=== PATIENT | female | born 1950 | race Two or more races ===

== ENCOUNTER → 2020-05-29 | Outpatient (CLI) | payer OTHER, MEDICAID ==
[~2020-05-29] MED LIST: ALBU2TAB4 PO; ASPI-543 PO; ATOR40TA52 PO; FAMO-12 PO; FURO40TA4 PO; LEVO50TA7 PO; METO-169 PO; MONT10TA34 PO; MONT4CHW9 PO
--- NOTE | 2020-05-29 12:30 | NUR ---
PT ARRIVED TO THE CHF CLINIC WITH MD ORDERS FOR WOUND CARE/MARYCRUZ BOOTS TO THE LOWER EXTREMITIES. A/OX4, WHEELCHAIR AND ASSISTED BY FAMILY MEMBER. PT HAS 4+ PITTING EDEMA TO THE LOWER EXTREMITIES. WEEPING WITH MODERATE AMOUNT OF SERIOUS DRAINAGE WITH 1 OPEN BLISTER TO THE R LEG. Addendum: 05/29/20 at 1250 by YANN ANDRE RN RN MT PT IS SLOVAK SPEAKING ONLY CARE INTERPRETED BY MIGNON FROM FRONT OFFICE Addendum: 05/29/20 at 1253 by YANN ANDRE RN RN MT PT ON HOME O2 2L N/C
--- NOTE | 2020-05-29 12:48 | NUR ---
WOUND CARE DONE BY SERVANDO TOMAS. OPI FOAM AG PLACED ON CLEANSED OPEN WOUND WITH 4X4 CRIS PLACED ON TOP. MARYCRUZ BOOTS PLACED OVER CRIS. PT AND FAMILY GIVEN INSTRUCTION ABOUT WOUND CARE IN POLISH BY MIGNON. PT VERBALIZED UNDERSTANDING.
[2020-05-29 13:05] VITALS: BP 139/65
--- NOTE | 2020-05-29 13:05 | NUR ---
Discharge Instructions See e-MAR for any mediations given with this visit. Patient education given on disease process. Patient verbalized understanding. Previous labs reviewed. Patient discharged in stable condition with after care instructions and follow up appointment ON MONDAY NOTE WOUND CARE/MARYCRUZ BOOTS DONE BY SERVANDO TOMAS
== END | disposition home or self-care (01) ==
LOC: Rad HDHVI 11:09
PROVIDERS: ATTEND Internal Medicine
DX: R00.0 Tachycardia, unspecified (principal); I50.9 Heart failure, unspecified; J44.9 Chronic obstructive pulmonary disease, unspecified; Z95.2 Presence of prosthetic heart valve
CPT/HCPCS: 93306; G0463

== ENCOUNTER 2020-06-02 14:54 | Inpatient (IN) | payer OTHER, MEDICAID ==
[~2020-06-02] VITALS: Ht 152.4 cm; Wt 120.9 kg
[2020-06-02] MEDS ORDERED: cefTRIAXone 1GM/50ML D5W 50 ML IV ONE (15:45)
[2020-06-02] MEDS ORDERED: FUROSEMIDE 40 MG/4 ML VIAL IV ONE (15:45)
[2020-06-02] MEDS ORDERED: ENOXAPARIN SOD 30 MG/0.3 ML SYRINGE SC ONE (18:15)
[2020-06-02] MEDS ORDERED: MORPHINE SULF INJ 2 MG/ML SYRINGE 1ML IV PRN ×2 (18:15)
[2020-06-02] MEDS ORDERED: LORazepam 0.5 MG TAB PO PRN (18:15)
[2020-06-02] MEDS ORDERED: NITROGLYCERIN 0.4 MG SL TAB SL PRN (18:15)
[2020-06-02] MEDS ORDERED: ACETAMINOPHEN 500 MG TAB PO PRN (18:15)
[2020-06-02] MEDS ORDERED: hydrALAZINE HCL 20 MG/ML VL IV PRN (18:15)
[2020-06-02 19:28] LABS: Basophils # (auto) 0.1 10 ^3/uL (0-0.2); Basophils % (auto) 1.1 % (0.0-2.0); Eosinophils # (auto) 0.3 10 ^3/uL (0-0.8); Eosinophils % (auto) 4.3 % (0.0-7.0); Hematocrit 36.3 % (36.0-46.0); Hemoglobin 11.8 g/dL (12.2-16.2); Lymphocytes % (auto) 24.7 % (10.0-50.0); Mean Corpuscular Hemoglobin 32.2 pg (28.0-32.0); Mean Corpuscular Hgb Conc. 32.6 g/dL (32.0-36.0); Mean Corpuscular Volume 98.7 fL (80.0-100.0); Monocytes # (auto) 1.1 10 ^3/uL (0-1.3); Monocytes % (auto) 13.7 % (0.0-12.0); Neutrophils # (auto) 4.5 10 ^3/uL (1.6-8.6); Neutrophils % (auto) 56.2 % (37.0-80.0); Nucleated Red Blood Cells % 0.3 %; Platelet Count (auto) 293 10^3/uL (140-450); Red Blood Cells 3.68 10^6/uL (4.0-5.20); Red Cell Distribution Width 16.7 % (11.8-14.3); White Blood Cell 7.9 10^3/uL (4.4-10.8)
[2020-06-02 19:41] LABS: INR 0.98 (0.9-1.15); Partial Thromboplastin Time 21.7 sec (23.0-31.2)
[2020-06-02 19:44] LABS: Albumin 3.3 g/dL (3.4-5.0); Calcium 8.4 mg/dL (8.5-10.1); Potassium 3.7 mmol/L (3.5-5.1)
[2020-06-02 19:46] LABS: Lactic Acid w/Reflex 2.4 mmol/L (0.4-2.0)
[2020-06-02 19:49] LABS: BUN/Creatinine Ratio 12.2; Bilirubin, Total 0.8 mg/dL (0.2-1.0)
[2020-06-02 21:22] VITALS: BP 150/48
--- NOTE | 2020-06-02 21:22 | NUR ---
Respiratory note: PT CURRENTLY ON NC3L AT THIS TIME, NO RESP DISTRESS NOTED. PRN TX NOT INDICATED AT THIS TIME. SPO2 99%, HR 92, RR 18, BS DIM T/O. PT AWARE TO CALL IF SOB/WHEEZING.
--- NOTE | 2020-06-02 22:40 | NUR ---
Telemetry admit from ER ESCALANTEMAGALI WILSON admitted to Telemetry unit. Patient oriented to primary RN, unit, room, bed, and unit policies regarding patient care and visiting hours. Patient now on continuous telemetry monitoring, tele box #30 and telemetry reading on arrival to unit is NSR. Patient placed on bedside oxygen, weighed by bedscale and encouraged to call if they need something. All questions and concerns addressed, patient verbalized understanding. Bed in lowest locked position, call light within reach, side rails up x2, fall precautions in place. Will continue to monitor Q1hr and PRN.
[2020-06-02] MEDS: CLINDAMYCIN 300MG IV 50 ML IV SCH (22:52)
[2020-06-02] MEDS: AZTREONAM 1GM INJ 0.5 GM in D5W 5% 50 ML IV SCH (22:52)
[2020-06-03] MEDS ORDERED: ALBUTEROL SULF HFA 90MCG INH 200DOSE IN SCH
[2020-06-03] MEDS: ALBUTEROL SULF 2.5 MG/0.5ML(0.5%) NEB SOLN NEB PRN ×2 (04:53→19:06)
[2020-06-03 05:12] VITALS: BP 129/69
[2020-06-03] MEDS: AZTREONAM 1GM INJ 0.5 GM in D5W 5% 50 ML IV SCH (05:33)
[2020-06-03] MEDS: CLINDAMYCIN 300MG IV 50 ML IV SCH ×3 (06:19→22:12)
[2020-06-03 07:04] LABS: Basophils # (auto) 0.1 10 ^3/uL (0-0.2); Basophils % (auto) 1.4 % (0.0-2.0); Eosinophils # (auto) 0.4 10 ^3/uL (0-0.8); Eosinophils % (auto) 5.2 % (0.0-7.0); Hematocrit 35.3 % (36.0-46.0); Hemoglobin 11.5 g/dL (12.2-16.2); Lymphocytes # (auto) 2.4 10 ^3/uL (0.4-5.4); Lymphocytes % (auto) 31.5 % (10.0-50.0); Mean Corpuscular Hemoglobin 32.3 pg (28.0-32.0); Mean Corpuscular Hgb Conc. 32.6 g/dL (32.0-36.0); Mean Corpuscular Volume 98.8 fL (80.0-100.0); Monocytes % (auto) 13.3 % (0.0-12.0); Neutrophils # (auto) 3.7 10 ^3/uL (1.6-8.6); Neutrophils % (auto) 48.6 % (37.0-80.0); Nucleated Red Blood Cells % 0.2 %; Platelet Count (auto) 265 10^3/uL (140-450); Red Blood Cells 3.57 10^6/uL (4.0-5.20); White Blood Cell 7.5 10^3/uL (4.4-10.8)
[2020-06-03 07:19] LABS: Albumin 3.1 g/dL (3.4-5.0); Calcium 8.1 mg/dL (8.5-10.1); Potassium 3.3 mmol/L (3.5-5.1)
[2020-06-03 07:22] LABS: BUN/Creatinine Ratio 11.8; Bilirubin, Total 0.6 mg/dL (0.2-1.0); Total Protein 5.8 g/dL (6.4-8.2)
--- NOTE | 2020-06-03 08:00 | NUR ---
To ammunition assembly i laborer for LHC with Dr. Lorenzana
[2020-06-03 08:29] VITALS: BP 133/79
[2020-06-03] MEDS: DOCUSATE CALCIUM 240 MG CAP PO SCH (09:04)
--- NOTE | 2020-06-03 10:20 | NUR ---
Returned to floor Must remain supine until 1135. Continue previous diet.
[2020-06-03] MEDS ORDERED: ENOXAPARIN SOD 40 MG/0.4 ML SYRINGE SC ONE (10:30)
[2020-06-03] MEDS ORDERED: FUROSEMIDE 40 MG/4 ML VIAL IV ONE (10:30)
[2020-06-03] MEDS ORDERED: POTASSIUM CHL 20 Meq TABLET PO ONE (10:30)
[2020-06-03] MEDS ORDERED: ASPirin 81 mg TAB PO ONE (10:30)
[2020-06-03] MEDS ORDERED: traMADol HCL 50 MG TAB PO PRN (10:30)
[2020-06-03 12:16] VITALS: BP 130/72
[2020-06-03] MEDS ORDERED: METO-169 PO (16:03)
[2020-06-03] MEDS ORDERED: LEVO50TA7 PO (16:03)
[2020-06-03] MEDS ORDERED: ALBU2TAB4 PO (16:03)
[2020-06-03] MEDS ORDERED: MONT4CHW9 PO (16:03)
[2020-06-03] MEDS ORDERED: FURO40TA4 PO (16:03)
[2020-06-03] MEDS ORDERED: ATOR40TA52 PO (16:03)
[2020-06-03 16:58] VITALS: BP 145/75
[2020-06-03] MEDS: POTASSIUM CHL 20 Meq TABLET PO SCH (17:44)
[2020-06-03] MEDS: FUROSEMIDE 40 MG/4 ML VIAL IV SCH (17:44)
[2020-06-03] MEDS ORDERED: FAMO-12 PO (19:07)
[2020-06-03] MEDS ORDERED: ASPI-543 PO (19:08)
[2020-06-03] MEDS ORDERED: MONT10TA34 PO (19:08)
--- NOTE | 2020-06-03 19:50 | NUR ---
Opening Shift Note Assumed care of patient, awake and alert. No S/S of distress/SOB or pain. Instructed on POC and to call for assist PRN. Bed in lowest locked position, call light within reach, side rails up x2, fall precautions in place. Will continue to monitor for changes Q1hr and PRN.
[2020-06-03 22:00] VITALS: BP 136/62
[2020-06-03] MEDS: ATORVASTATIN 20 MG TAB PO SCH (22:12)
[2020-06-04] MEDS: ALBUTEROL SULF 2.5 MG/0.5ML(0.5%) NEB SOLN NEB PRN ×2 (02:22→21:36)
[2020-06-04 05:00] VITALS: BP 129/57
[2020-06-04 06:36] LABS: Calcium 8.6 mg/dL (8.5-10.1); Potassium 3.6 mmol/L (3.5-5.1)
[2020-06-04] MEDS: FUROSEMIDE 40 MG/4 ML VIAL IV SCH ×2 (06:45→17:32)
[2020-06-04] MEDS: CLINDAMYCIN 300MG IV 50 ML IV SCH ×3 (06:45→21:24)
[2020-06-04] MEDS: POTASSIUM CHL 20 Meq TABLET PO SCH ×2 (06:45→17:32)
--- NOTE | 2020-06-04 09:15 | NUR ---
Respiratory note: PT FOUND ON NC 2 L. PT IS SLEEPING AT THIS TIME. NO RESP DISTRESS NOTED. PRN TX NOT INDICATED. SPO2 93%, HR 92, RR 20, BS DIMINISHED T/O. PT AWARE TO CALL IF SOB
[2020-06-04] MEDS: ENOXAPARIN SOD 40 MG/0.4 ML SYRINGE SC SCH (09:24)
[2020-06-04] MEDS: ASPirin 81 mg TAB PO SCH (09:24)
[2020-06-04] MEDS: DOCUSATE CALCIUM 240 MG CAP PO SCH (09:24)
[2020-06-04 09:35] VITALS: BP 121/49
[2020-06-04] MEDS ORDERED: ceFAZolin 1GM/50ML 50 ML IV ONE (10:30)
[2020-06-04 12:52] VITALS: BP 137/63
--- NOTE | 2020-06-04 13:53 | NUR ---
Belcher 16F inserted for I&Os per Dr. Moss/Jerod. Patient tolerated well. Clear yellow urine output immediately after insertion. Secured to upper thigh with StatLock.
[2020-06-04] MEDS ORDERED: METOPROLOL TARTRATE 25 MG TAB PO ONE (14:45)
[2020-06-04 16:32] VITALS: BP 136/66
[2020-06-04] MEDS: ceFAZolin 1GM/50ML 50 ML IV SCH (17:31)
[2020-06-04] MEDS: METOPROLOL TARTRATE 25 MG TAB PO SCH (21:24)
[2020-06-04] MEDS: ATORVASTATIN 20 MG TAB PO SCH (21:24)
[2020-06-04 22:00] VITALS: BP 133/60
[2020-06-05] MEDS: ceFAZolin 1GM/50ML 50 ML IV SCH ×3 (01:16→18:25)
[2020-06-05 05:00] VITALS: BP 145/66
[2020-06-05] MEDS: CLINDAMYCIN 300MG IV 50 ML IV SCH (06:01)
[2020-06-05] MEDS: POTASSIUM CHL 20 Meq TABLET PO SCH ×2 (06:02→18:26)
[2020-06-05] MEDS: FUROSEMIDE 40 MG/4 ML VIAL IV SCH ×2 (06:02→18:25)
[2020-06-05 07:01] LABS: BUN/Creatinine Ratio 8.3; Calcium 8.4 mg/dL (8.5-10.1); Potassium 3.3 mmol/L (3.5-5.1)
--- NOTE | 2020-06-05 08:35 | NUR ---
Opening Shift Note Assumed care of patient, awake and alert and oriented x4. No S/S of distress. Pt. is on 2L of oxygen via NC. Instructed on POC and to call for stand by assist to the restroom. Bed in lowest position, call light within reach. This RN will continue to monitor for changes Q1hr and PRN.
[2020-06-05 09:00] VITALS: BP 139/69
[2020-06-05] MEDS ORDERED: POTASSIUM CHL 20 Meq TABLET PO ONE ×2 (09:15→10:30)
--- NOTE | 2020-06-05 10:18 | NUR ---
Dr. Luna at nurse station MD discussing plan of care with this RN. New orders received. Will continue to monitor Q1 hour and PRN.
--- NOTE | 2020-06-05 10:26 | NUR ---
Respiratory note: PT FOUND ON NC 2 L. PT WAS AWAKE AND ALERT. NO RESP DISTRESS NOTED. PRN TX NOT INDICATED. SPO2 98% ON 2L N/C., HR 98, RR 20, BS DIMINISHED T/O. PT AWARE TO CALL IF SOB
[2020-06-05] MEDS: DOCUSATE CALCIUM 240 MG CAP PO SCH (10:31)
[2020-06-05] MEDS: ASPirin 81 mg TAB PO SCH (10:31)
[2020-06-05] MEDS: ENOXAPARIN SOD 40 MG/0.4 ML SYRINGE SC SCH (10:37)
[2020-06-05] MEDS: METOPROLOL TARTRATE 25 MG TAB PO SCH ×2 (10:56→22:00)
--- NOTE | 2020-06-05 12:37 | NUR ---
Nutrition Assessment Notes Please see attached link fro complete assessment Est energy needs ABW 83 [id number] kcal (17-20 kcal/kg ABW ) Est protein needs: 83-91 g (1-1.1g/kg ABW) Will reassess prn. Addendum: 06/05/20 at [address] Amended: Links added.
[2020-06-05 13:00] VITALS: BP 101/55
[2020-06-05] MEDS: CLINDAMYCIN HCL 150 MG CAP PO SCH ×2 (13:54→22:09)
[2020-06-05 16:31] VITALS: BP 107/54
[2020-06-05 17:39] VITALS: BP 107/54
--- NOTE | 2020-06-05 18:46 | NUR ---
IV Removed IV removed with clean sterile technique, catheter fully intact. Pressure dressing applied to site. Patient tolerated well. Will continue to monitor Q1 hour and PRN.
--- NOTE | 2020-06-05 19:26 | NUR ---
Opening Shift Note Assumed care of patient after receiving report. Patient is awake and alert with no S/S of distress/SOB or pain. Call light within reach, bed in lowest locked position x2 side rails, HOB semi fowlers. Instructed on POC and to call for assist PRN, will continue to monitor for changes Q1hr and PRN.
--- NOTE | 2020-06-05 19:34 | NUR ---
Closing Note Report given to operations supervisor 2nd shift RN. No signs or symptoms of distress noted at this time.
[2020-06-05] MEDS: ALBUTEROL SULF 2.5 MG/0.5ML(0.5%) NEB SOLN NEB PRN (19:52)
[2020-06-05 22:00] VITALS: BP 119/47
[2020-06-05] MEDS: ATORVASTATIN 20 MG TAB PO SCH (22:09)
[2020-06-06] MEDS: ceFAZolin 1GM/50ML 50 ML IV SCH ×2 (02:09→08:53)
[2020-06-06 05:00] VITALS: BP 112/61
[2020-06-06] MEDS: FUROSEMIDE 40 MG/4 ML VIAL IV SCH (06:01)
[2020-06-06] MEDS: CLINDAMYCIN HCL 150 MG CAP PO SCH ×2 (06:02→13:41)
[2020-06-06] MEDS: POTASSIUM CHL 20 Meq TABLET PO SCH (06:02)
[2020-06-06 06:56] LABS: BUN/Creatinine Ratio 9.7; Calcium 8.1 mg/dL (8.5-10.1); Potassium 4.2 mmol/L (3.5-5.1)
[2020-06-06 08:00] VITALS: BP 138/70
--- NOTE | 2020-06-06 08:00 | NUR ---
Opening Shift Note Assumed care of patient, awake, alert, and oriented. No S/S of distress/SOB or pain. Bed in lowest/locked position, bed rails up x2, call light within reach. Instructed on POC and to call for assist PRN. Will continue to monitor for changes Q1hr and PRN.
[2020-06-06] MEDS: ENOXAPARIN SOD 40 MG/0.4 ML SYRINGE SC SCH (08:53)
[2020-06-06] MEDS: METOPROLOL TARTRATE 25 MG TAB PO SCH (08:54)
[2020-06-06] MEDS: ASPirin 81 mg TAB PO SCH (08:54)
[2020-06-06] MEDS: DOCUSATE CALCIUM 240 MG CAP PO SCH (08:56)
--- NOTE | 2020-06-06 11:40 | NUR ---
CENTENO REMOVED CENTENO CATHETER PER MD ORDERS. APPROXIMATELY 850 MG YELLOW CLEAR URINE EMPTIED. PATIENT TOLERATED WELL. INFORMED PATIENT TO USE CALL LIGHT FOR ASSISTANCE TO BEDSIDE COMMODE. WILL CONTINUE TO MONITOR
--- NOTE | 2020-06-06 14:20 | NUR ---
URINE PATIENT HAD APPROXIMATELY 200 ML CLEAR YELLOW URINE IN BEDSIDE COMMODE
--- NOTE | 2020-06-06 15:20 | NUR ---
Discharge instructions given as ordered. Encourage to follow up with PMD as instructed. All questions and concerns addressed. Patient verbalized understanding. IV removed with catheter intact, pressure dressing applied, parham catheter removed. Telemetry unit returned to ICU. Patient taken to vehicle via wheelchair with all personal belongings, accompanied by staff. No distress noted at time of departure.
== END 2020-06-06 15:10 | disposition home or self-care (01) | DRG 602 ==
LOC: ER 14:54 → TELE 14:55 → TELE-CENTR 22:30
PROVIDERS: ATTEND Internal Medicine
DX: L03.115 Cellulitis of right lower limb (principal); I50.33 Acute on chronic diastolic (congestive) heart failure; J96.10 Chronic respiratory failure, unspecified whether with hypoxia or hypercapnia; Z68.43 Body mass index [BMI] 50.0-59.9, adult; L03.116 Cellulitis of left lower limb; I11.0 Hypertensive heart disease with heart failure; J44.9 Chronic obstructive pulmonary disease, unspecified; E07.9 Disorder of thyroid, unspecified; E66.01 Morbid (severe) obesity due to excess calories; E78.5 Hyperlipidemia, unspecified; E87.6 Hypokalemia; I25.10 Atherosclerotic heart disease of native coronary artery without angina pectoris; Z82.49 Family history of ischemic heart disease and other diseases of the circulatory system; Z90.710 Acquired absence of both cervix and uterus; Z95.1 Presence of aortocoronary bypass graft; Z99.81 Dependence on supplemental oxygen; Z87.891 Personal history of nicotine dependence; R00.0 Tachycardia, unspecified
CPT/HCPCS: 36415; 71045; 80048; 80053; 83036; 83605; 83735; 83880; 84443; 84484; 85025; 85379; 85610; 85730; 87040; 93970; 94640; 99291; G0378; J0690; J0696; J3490; J7060

== ENCOUNTER → 2020-06-02 | Outpatient (CLI) | payer OTHER, MEDICAID ==
[2020-06-02 13:41] VITALS: BP 139/53
--- NOTE | 2020-06-02 13:41 | NUR ---
CLINIC PT ARRIVED TO THE CHF CLINIC FOR F/U EVAL AND TX FOR FLUID RETENTION. A/OX4, MALAYSIAN SPEAKING ONLY. THE PT IS IN HOME WHEELCHAIR ACCOMPANIED BY . MAGALI FROM SPANISH INTERPRETER/TRANSLATOR USED FARM APPRAISER. THE PT HAS 0.3LB WT DECREASE SINCE LAST VISIT ON 05/29/20. THE PT ARRIVED WITH MARYCRUZ BOOTS ON THAT WERE APPLIED ON 05/29/20 HERE IN CLINIC. MARYCRUZ BOOTS REMOVED LEGS APPEAR TO HAVE NO IMPROVEMENT. 4+ PITTING EDEMA RED AND WARM TO TOUCH. MD ROLLINS MADE AWARE.
--- NOTE | 2020-06-02 14:08 | NUR ---
MD at bedside. MD at bedside for evaluation and treatment for acute episode. Further orders received and carried out. PT TO GO TO ER FOR TX OF CELLULITIS PER MD ORDERS. PT VERBALIZED UNDERSTANDING.
[2020-06-02 14:20] VITALS: BP 137/54
--- NOTE | 2020-06-02 14:20 | NUR ---
Discharge Instructions See e-MAR for any mediations given with this visit. Patient education given on disease process. Patient verbalized understanding. Previous labs reviewed. Patient discharged in stable condition with after care instructions TO GO DIRECTLY TO HOSPITAL ER FOR TX OF CELLULITIS. Addendum: 06/02/20 at 1500 by YANN ANDRE RN RN [place] AFTER REVIEWING LABS PER MD ORDER NEW PRESCRIPTION SENT TO [facility] [address] PER PT REQUEST. VIT D 3000/DAY, SYNTHROID 50MCG DAILY
== END | disposition home or self-care (01) ==
LOC: CHF HDHVI 13:54
PROVIDERS: ATTEND Internal Medicine Cardiovascular Disease
DX: L03.90 Cellulitis, unspecified (principal); R60.9 Edema, unspecified
CPT/HCPCS: G0463

== ENCOUNTER → 2020-06-11 | Outpatient (CLI) | payer OTHER, MEDICAID ==
[2020-06-11 12:30] VITALS: BP 132/74
--- NOTE | 2020-06-11 12:30 | NUR ---
CLINIC PT ARRIVED TO THE CHF CLINIC FROM BACK OFFICE WITH ORDERS FOR WOUND CARE AND BILATERAL UNNA BOOTS 3X A WEEK. PT HAS 3+ EDEMA TO THE LOWER EXTREMITIES BILATERALLY. A/OX4, WHEELCHAIR, ASSISTED BY . PT IS BARBADIAN SPEAKING ONLY AND CARE WAS TRANSLATED BY XIAO TOMAS. BREATHING IS EVEN AND UNLABORED. PT HAS A 4.2LB WT DECREASE SINCE LAST VISIT ON 06/02/20.
--- NOTE | 2020-06-11 12:40 | NUR ---
WOUND CARE DONE BY SERVANDO LARIOS DRESSING WITH PETROLEUM DRESSING PLACED ON CLEAN WOUND TO LAT ASPECT OF CALF. WOUND IS BRYSON SIZE IN DIAMETER. UNNA BOOTS APPLIED BILATERALLY. PT TOLERATED WELL.
[2020-06-11 12:55] VITALS: BP 148/67
--- NOTE | 2020-06-11 12:55 | NUR ---
Discharge Instructions See e-MAR for any mediations given with this visit. Patient education given on disease process. Patient verbalized understanding. Previous labs reviewed. Patient discharged in stable condition with after care instructions and follow up appointment ON MON. UNNA BOOTS TO BE DONE IN CLINIC 3X A WEEK PER MD ORDERS. NOTE WOUND CARE/ UNNA BOOTS DONE BY SERVANDO TOMAS
== END | disposition home or self-care (01) ==
LOC: CHF HDHVI 12:26
PROVIDERS: ATTEND Internal Medicine
DX: R60.0 Localized edema (principal)
CPT/HCPCS: G0463

== ENCOUNTER → 2020-06-16 | Outpatient (CLI) | payer OTHER, MEDICAID ==
[2020-06-16 14:58] VITALS: BP 126/50
--- NOTE | 2020-06-16 14:58 | NUR ---
CLINIC PT ARRIVED TO THE CHF CLINIC FOR EVAL AND SCHEDULED APPLICATION OF UNNA BOOTS. A/OX4, WHEELCHAIR, ASSISTED BY . BREATHING IS EVEN AND UNLABORED. PT HAS A 1.3 LB WT INCREASE SINCE LAST VISIT ON 06/11/20.
--- NOTE | 2020-06-16 15:20 | NUR ---
VIVIAN MCGREGOR APPLIED BY SERVANDO TOMAS
[2020-06-16 15:49] VITALS: BP 121/58
--- NOTE | 2020-06-16 15:49 | NUR ---
Discharge Instructions See e-MAR for any mediations given with this visit. Patient education given on disease process. Patient verbalized understanding. Previous labs reviewed. Patient discharged in stable condition with after care instructions and follow up appointment ON PER MD ORDERS. PT IS GIVEN A VIT D SPRAY AN INSTRUCTED TO USE 5000 UNITS BID. PT LASIX HAS BEEN CHANGED TO 40MG BID AND K+ 20MEQ BID. DRY WALL APPLICATOR SERVANDO DELVALLE GIVING PT AND INSTRUCTIONS IN TURKISH. PT INSTRUCTED TO BRING ALL MEDS IN ON FOR MED REC. PT AND BOTH VERBALIZED UNDERSTANDING. NOTE VIVIAN BOOTS APPLIED BY SERVANDO TOMAS
== END | disposition home or self-care (01) ==
LOC: CHF HDHVI 15:00
PROVIDERS: ATTEND Internal Medicine
DX: R06.02 Shortness of breath (principal); R53.83 Other fatigue; R60.9 Edema, unspecified
CPT/HCPCS: G0463

== ENCOUNTER → 2020-06-18 | Outpatient (CLI) | payer OTHER, MEDICAID ==
[2020-06-18 14:54] VITALS: BP 129/49
--- NOTE | 2020-06-18 14:54 | NUR ---
CLINIC PT ARRIVED TO THE CHF CLINIC FOR SCHEDULED EVAL AND UNNA BOOTS. A/OX4, WHEELCHAIR, ASSISTED BY . PT HAS NOT HAD ANY CHANGE TO WT SINCE LAST VISIT ON 06/16/20. SHE VERBALIZED THAT SHE HAS INCREASED HER LASIX AND K+ PRESCRIBED, AND THAT SHE FEELS THAT SHE HAS HAD AN INCREASE IN URINATION FREQUENCY. PT HAS UNNA BOOTS ON BILATERALLY WHICH WERE PLACED HERE IN THE CLINIC ON 06/16/20. PT IS ON HOME O2 2L N/C, BREATHING IS EVEN AND UNLABORED.
--- NOTE | 2020-06-18 15:17 | NUR ---
WOUND CARE DONE BY SERVANDO TOMAS 2X2CM VENOUS STASIS ULCER TO THE R LOWER LEG PRESENT SILVER DRESSING COVERED BY PETROLEUM GAUZE APPLIED TO CLEAN WOUND, UNNA BOOTS APPLIED BILATERALLY TO THE LOWER EXTREMITIES.
[2020-06-18 15:29] VITALS: BP 130/64
--- NOTE | 2020-06-18 15:29 | NUR ---
Discharge Instructions See e-MAR for any mediations given with this visit. Patient education given on disease process. Patient verbalized understanding. Previous labs reviewed. Patient discharged in stable condition with after care instructions and follow up appointment NOTE WOUND CARE/UNNA BOOTS DONE BY SERVANDO TOMAS
== END | disposition home or self-care (01) ==
LOC: CHF HDHVI 15:05
PROVIDERS: ATTEND Internal Medicine
DX: R60.0 Localized edema (principal)
CPT/HCPCS: G0463

== ENCOUNTER → 2020-06-22 | Outpatient (CLI) | payer OTHER, MEDICAID ==
[2020-06-22 14:55] VITALS: BP 139/63
[2020-06-22 15:35] VITALS: BP 137/62
== END | disposition home or self-care (01) ==
LOC: CHF HDHVI 14:53
PROVIDERS: ATTEND Internal Medicine
DX: T14.8XXD Other injury of unspecified body region, subsequent encounter (principal); X58.XXXD Exposure to other specified factors, subsequent encounter
CPT/HCPCS: G0463

== ENCOUNTER → 2020-06-24 | Outpatient (CLI) | payer OTHER, MEDICAID ==
[2020-06-24 14:58] VITALS: BP 127/64
[2020-06-24 15:45] VITALS: BP 124/64
== END | disposition home or self-care (01) ==
LOC: CHF HDHVI 14:56
PROVIDERS: ATTEND Internal Medicine Cardiovascular Disease
DX: T14.8XXD Other injury of unspecified body region, subsequent encounter (principal); X58.XXXD Exposure to other specified factors, subsequent encounter
CPT/HCPCS: G0463

== ENCOUNTER → 2020-06-26 | Outpatient (CLI) | payer OTHER, MEDICAID ==
[2020-06-26 14:35] VITALS: BP 126/56
[2020-06-26 15:20] VITALS: BP 130/55
== END | disposition home or self-care (01) ==
LOC: CHF HDHVI 14:55
PROVIDERS: ATTEND Internal Medicine
DX: I87.2 Venous insufficiency (chronic) (peripheral) (principal)
CPT/HCPCS: G0463

== ENCOUNTER → 2020-06-29 | Outpatient (CLI) | payer OTHER, MEDICAID ==
[2020-06-29 15:00] VITALS: BP 116/59
--- NOTE | 2020-06-29 15:00 | NUR ---
CLINIC PT ARRIVED TO THE CHF CLINIC FOR SCHEDULED EVAL AND TX. A/OX4, WHEELCHAIR ASSISTED BY . BREATHING IS EVEN AND UNLABORED. PT HAS A 2LB WT LOSS SINCE LAST VISIT ON 06/26/20.
--- NOTE | 2020-06-29 15:09 | NUR ---
WOUND CARE DONE BY GAUDENCIO AL MA FOAM SILVER PLACED ON CLEAN WOUND THEN UNNA BOOTS APPLIED OVER. WOUND ID HEALING AND IS 1CM X 2CM IN DIAMETER.
[2020-06-29 15:25] VITALS: BP 102/60
--- NOTE | 2020-06-29 15:25 | NUR ---
Discharge Instructions See e-MAR for any mediations given with this visit. Patient education given on disease process. Patient verbalized understanding. Previous labs reviewed. Patient discharged in stable condition with after care instructions and follow up appointment ON MONDAY. NOTE WOUND CARE/ UNNA BOOTS APPLIED BY SERVANDO TOMAS
== END | disposition home or self-care (01) ==
LOC: CHF HDHVI 15:00
PROVIDERS: ATTEND Internal Medicine
DX: T14.8XXD Other injury of unspecified body region, subsequent encounter (principal); X58.XXXD Exposure to other specified factors, subsequent encounter
CPT/HCPCS: G0463

== ENCOUNTER → 2020-07-01 | Outpatient (CLI) | payer OTHER, MEDICAID ==
[2020-07-01 14:20] VITALS: BP 128/50
[2020-07-01 15:20] VITALS: BP 128/50
[2020-07-01 15:47] VITALS: BP 127/55
== END | disposition home or self-care (01) ==
LOC: CHF HDHVI 15:26
PROVIDERS: ATTEND Internal Medicine
DX: T14.8XXD Other injury of unspecified body region, subsequent encounter (principal); X58.XXXD Exposure to other specified factors, subsequent encounter
CPT/HCPCS: G0463

== ENCOUNTER → 2020-07-03 | Outpatient (CLI) | payer OTHER, MEDICAID ==
[2020-07-03 12:53] VITALS: BP 126/41
--- NOTE | 2020-07-03 12:53 | NUR ---
CLINIC PT ARRIVED TO THE CHF CLINIC FOR SCHEDULED WOUND CARE/UNNA BOOTS. A/OX4, USE OF WHEELCHAIR ASSISTED BY . PT ARRIVED ON HOME O2 2L N/C. PT ARRIVED WITH UNNA BOOTS ON, PLACED HERE IN CLINIC ON 07/01/20. PT HAS A 1LB INCREASE SINCE LAST VISIT ON 07/01/20
--- NOTE | 2020-07-03 13:00 | NUR ---
WOUND CARE DONE BY SERVANDO TOMAS OPTI FOAM AG PLACED ON CLEAN WOUND COVERED WITH TEGADERM. UNNA BOOTS APPLIED BILATERALLY.
--- NOTE | 2020-07-03 13:18 | NUR ---
Discharge Instructions See e-MAR for any mediations given with this visit. Patient education given on disease process. Patient verbalized understanding. Previous labs reviewed. Patient discharged in stable condition with after care instructions and follow up appointment ON MONDAY. NOTE WOUND CARE/UNNA BOOTS DONE BY SERVANDO TOMAS
[2020-07-03 13:19] VITALS: BP 118/51
== END | disposition home or self-care (01) ==
LOC: CHF HDHVI 12:53
PROVIDERS: ATTEND Internal Medicine Cardiovascular Disease
DX: R60.0 Localized edema (principal)
CPT/HCPCS: G0463

== ENCOUNTER → 2020-07-06 | Outpatient (CLI) | payer OTHER, MEDICAID ==
[2020-07-06 15:00] VITALS: BP 126/61
--- NOTE | 2020-07-06 15:00 | NUR ---
CLINIC PT ARRIVED TO THE CHF CLINIC FOR SCHEDULED WOUND CARE AND UNNA BOOTS. A/OX4, WHEELCHAIR ASSISTED BY , PT IS ON HOME O2 2L N/C, BREATHING IS EVEN AND UNLABORED.
--- NOTE | 2020-07-06 15:05 | NUR ---
WOUND CARE DONE BY SERVANDO TOMAS XERIFORM PLACED ON CLEAN WOUND AND COVERED WITH OPTILOCK, UNNA BOOTS PLACED BILATERALLY
[2020-07-06 15:25] VITALS: BP 142/58
--- NOTE | 2020-07-06 15:25 | NUR ---
Discharge Instructions See e-MAR for any mediations given with this visit. Patient education given on disease process. Patient verbalized understanding. Previous labs reviewed. Patient discharged in stable condition with after care instructions and follow up appointment ON MON. NOTE WOUND CARE/UNNA BOOTS DONE BY SERVANDO TOMAS
== END | disposition home or self-care (01) ==
LOC: CHF HDHVI 15:08
PROVIDERS: ATTEND Internal Medicine
DX: R60.0 Localized edema (principal)
CPT/HCPCS: G0463

== ENCOUNTER → 2020-07-08 | Outpatient (CLI) | payer OTHER, MEDICAID ==
[~2020-07-08] VITALS: Ht 152.4 cm; Wt 113.4 kg
[~2020-07-08] MED LIST changes: +ADENOSINE 90 MG/30 ML INJ IV ONE; +ADENOSINE 95 MG in GIVE UN-DILUTED 0 ML IV ONE
[2020-07-08 14:15] VITALS: BP 104/56
[2020-07-08 14:46] VITALS: BP 101/59
== END | disposition home or self-care (01) ==
LOC: Rad HDHVI 13:49
PROVIDERS: ATTEND Internal Medicine
DX: I87.319 Chronic venous hypertension (idiopathic) with ulcer of unspecified lower extremity (principal); I11.0 Hypertensive heart disease with heart failure
CPT/HCPCS: 78452; 87205; 93005; 96374; 96375; A9500; G0463; J0153; 87077; 87186

== ENCOUNTER → 2020-07-10 | Outpatient (CLI) | payer OTHER, MEDICAID ==
[~2020-07-10] MED LIST changes: -ADENOSINE 90 MG/30 ML INJ IV ONE; -ADENOSINE 95 MG in GIVE UN-DILUTED 0 ML IV ONE
[2020-07-10 13:53] VITALS: BP 130/50
[2020-07-10 14:25] VITALS: BP 142/55
== END | disposition home or self-care (01) ==
LOC: CHF HDHVI 13:53
PROVIDERS: ATTEND Internal Medicine Cardiovascular Disease
DX: I87.2 Venous insufficiency (chronic) (peripheral) (principal); R60.9 Edema, unspecified; I83.009 Varicose veins of unspecified lower extremity with ulcer of unspecified site; I50.9 Heart failure, unspecified
CPT/HCPCS: G0463

== ENCOUNTER → 2020-07-13 | Outpatient (CLI) | payer OTHER, MEDICAID ==
[2020-07-13 15:00] VITALS: BP 114/44
--- NOTE | 2020-07-13 15:00 | NUR ---
CLINIC PT ARRIVED TO THE CHF CLINIC FOR SCHEDULED WOUND CARE AND EVAL AND UNNA BOOTS. A/OX4, IN HOME WHEELCHAIR ASSISTED BY . PT IS ON HOME 02 2L N/C. PT HAS A 1 LB WT DECREASE SINCE LAST VISIT ON 07/10/20. BREATHING IS EVEN AND UNLABORED.
--- NOTE | 2020-07-13 15:09 | NUR ---
WOUND CARE DONE BY SERVANDO TOMAS WOUND CLEANED WITH NS HONEY PLACED ON WOUND AND COVERED WITH PETROLEUM AND DRY STERILE CRIS. UNNA BOOTS PLACED BILATERALLY TO THE LOWER EXTREMITIES.
[2020-07-13 15:30] VITALS: BP 127/55
--- NOTE | 2020-07-13 15:30 | NUR ---
Discharge Instructions See e-MAR for any mediations given with this visit. Patient education given on disease process. Patient verbalized understanding. Previous labs reviewed. Patient discharged in stable condition with after care instructions and follow up appointment WED. NOTE WOUND CARE/UNNA BOOTS DONE BY SERVANDO TOMAS
== END | disposition home or self-care (01) ==
LOC: CHF HDHVI 15:13
PROVIDERS: ATTEND Internal Medicine
DX: R60.0 Localized edema (principal); I87.8 Other specified disorders of veins
CPT/HCPCS: G0463

== ENCOUNTER → 2020-07-15 | Outpatient (CLI) | payer OTHER, MEDICAID ==
[2020-07-15 14:45] VITALS: BP 118/42
[2020-07-15 15:38] VITALS: BP 132/48
== END | disposition home or self-care (01) ==
LOC: CHF HDHVI 14:48
PROVIDERS: ATTEND Internal Medicine
DX: S81.801A Unspecified open wound, right lower leg, initial encounter (principal); R60.0 Localized edema; X58.XXXA Exposure to other specified factors, initial encounter; Y93.89 Activity, other specified; Y92.89 Other specified places as the place of occurrence of the external cause; Y99.8 Other external cause status
CPT/HCPCS: G0463

== ENCOUNTER → 2020-07-17 | Outpatient (CLI) | payer OTHER, MEDICAID ==
[2020-07-14 12:47] VITALS: BP 112/67
[2020-07-14 13:00] VITALS: BP 112/67
[2020-07-14 13:16] VITALS: BP 137/59
--- NOTE | 2020-07-17 12:47 | NUR ---
PT ARRIVED TO [facility] PT ARRIVED TO [facility] FOR WOUND CARE AND BLE UNNA BOOTS. PT IS A&OX4, PT ARRIVED VIA WC WITH FAMILY PRESENT. PT IS ON ROOM AIR, HAS EVEN AND UNLABORED RESPIRATIONS. NO S/S OF DISTRESS.SOB OR PAIN NOTED. WILL CARRY OUT MD ORDERS.
--- NOTE | 2020-07-17 13:00 | NUR ---
WOUND CARE NOTE WOUND CARE PERFORMED BY SERVANDO TOMAS, WOUND CLEANED WITH NS, HONEY APPLIED AND COVERED WITH PETROLEUM GAUZE. UNNA BOOTS PLACED BILATERALLY. PATIENT TOLERATED WELL.
--- NOTE | 2020-07-17 13:16 | NUR ---
CHF CLINIC Discharge Instructions See e-MAR for any mediations given with this visit. Patient education given on disease process. Patient verbalized understanding. Previous labs reviewed. Patient discharged in stable condition with after care instructions and follow up appointment. NOTES BLE UNNA BOOTS APPLIED BY SERVANDO TOMAS WOUND CARE TO R CALF PERFORMED BY SERVANDO TOMAS
== END | disposition home or self-care (01) ==
LOC: CHF HDHVI 12:50
PROVIDERS: ATTEND Internal Medicine
DX: S81.801A Unspecified open wound, right lower leg, initial encounter (principal); R60.0 Localized edema; X58.XXXA Exposure to other specified factors, initial encounter; Y93.89 Activity, other specified; Y92.89 Other specified places as the place of occurrence of the external cause; Y99.8 Other external cause status
CPT/HCPCS: G0463

== ENCOUNTER → 2020-07-20 | Outpatient (CLI) | payer OTHER, MEDICAID ==
[2020-07-20 15:00] VITALS: BP 144/64
--- NOTE | 2020-07-20 15:00 | NUR ---
CLINIC PT ARRIVED TO THE CHF CLINIC FOR WEEKLY BILATERAL UNNA BOOTS AND WOUND EVAL AND TX. A/OX4, WHEELCHAIR ASSISTED BY , PT ARRIVED TO CLINIC ON HOME O2 2L N/C. BREATHING IS EVEN AND UNLABORED.
--- NOTE | 2020-07-20 15:19 | NUR ---
WOUND CARE DONE BY SERVANDO TOMAS HONEY APPLIED TO CLEAN WOUND, PETROLEUM GAUZE PLACED OVER HONEY AND WOUND AREA. UNNA BOOTS PLACES BILATERALLY TO THE LOWER EXTREMITIES.
[2020-07-20 15:35] VITALS: BP 133/55
--- NOTE | 2020-07-20 15:35 | NUR ---
Discharge Instructions See e-MAR for any mediations given with this visit. Patient education given on disease process. Patient verbalized understanding. Previous labs reviewed. Patient discharged in stable condition with after care instructions and follow up appointment ON . NOTE WOUND CARE/UNNA BOOTS DONE BY SERVANDO TOMAS
== END | disposition home or self-care (01) ==
LOC: CHF HDHVI 15:14
PROVIDERS: ATTEND Internal Medicine Cardiovascular Disease
DX: R60.0 Localized edema (principal); I87.8 Other specified disorders of veins
CPT/HCPCS: G0463

== ENCOUNTER → 2020-07-23 | Outpatient (CLI) | payer OTHER, MEDICAID ==
[2020-07-23 15:00] VITALS: BP 148/72
--- NOTE | 2020-07-23 15:00 | NUR ---
CLINIC PT ARRIVED TO THE CHF CLINIC FOR WOUND TX AND UNNA BOOTS PER MD ORDERS. A/OX4, IN WHEELCHAIR ASSISTED BY . PT ARRIVED WITH HOME O2 ON 2L N/C. ARRIVED WITH UNNA BOOTS ON BILATERALLY.
--- NOTE | 2020-07-23 15:08 | NUR ---
WOUND CARE DONE BY SERVANDO TOMAS OLD BANDAGE/ UNNA BOOTS REMOVED. WOUND CLEANED WITH NS HONEY PLACED WOUND WITH PETROLEUM BANDAGE COVERING WOUND. UNNA BOOT PLACED BILATERALLY.
[2020-07-23 15:28] VITALS: BP 149/60
== END | disposition home or self-care (01) ==
LOC: CHF HDHVI 15:15
PROVIDERS: ATTEND Internal Medicine Cardiovascular Disease
DX: R60.0 Localized edema (principal); I87.8 Other specified disorders of veins
CPT/HCPCS: G0463

== ENCOUNTER → 2020-07-27 | Outpatient (CLI) | payer OTHER, MEDICAID ==
[2020-07-27 15:00] VITALS: BP 124/43
--- NOTE | 2020-07-27 15:00 | NUR ---
CLINIC PT ARRIVED TO [facility] FOR F/U WOUND CARE EVAL AND TX. A/OX4, ARRIVED IN WHEELCHAIR ASSISTED BY , PT ARRIVED ON HOME 02 2L N/C. BREATHING IS EVEN AND UNLABORED.
--- NOTE | 2020-07-27 15:16 | NUR ---
WOUND CARE/UNNA BOOTS DONE BY SERVANDO TOMAS WOUND CLEANED WITH NS, HONEY APPLIED TO WOUND AREA THEN COVERED WITH PETROLEUM GAUZE, UNNA BOOTS THEN APPLIED BILATERALLY TO THE LOWER EXTREMITIES.
[2020-07-27 15:29] VITALS: BP 134/57
--- NOTE | 2020-07-27 15:29 | NUR ---
Discharge Instructions See e-MAR for any mediations given with this visit. Patient education given on disease process. Patient verbalized understanding. Previous labs reviewed. Patient discharged in stable condition with after care instructions and follow up appointment ON . NOTE WOUND CARE/UNNA BOOTS APPLIED BY SERVANDO TOMAS
== END | disposition home or self-care (01) ==
LOC: CHF HDHVI 15:13
PROVIDERS: ATTEND Internal Medicine
DX: R60.0 Localized edema (principal); I87.8 Other specified disorders of veins
CPT/HCPCS: G0463

== ENCOUNTER → 2020-07-30 | Outpatient (CLI) | payer OTHER, MEDICAID ==
[2020-07-30 14:51] VITALS: BP 149/57
--- NOTE | 2020-07-30 14:51 | NUR ---
CLINIC PT ARRIVED TO THE CHF CLINIC FOR SCHEDULED WOUND CARE AND UNNA BOOTS, PT ARRIVED IN WHEELCHAIR ON HOME O2 2L N/C, ASSISTED BY . A/O X4, BREATHING IS EVEN AND UNLABORED.
--- NOTE | 2020-07-30 15:04 | NUR ---
WOUND CARE DONE BY VICENTA TOMAS HONEY APPLIED TO CLEAN WOUND AREA, PETROLEUM GAUZE APPLIED OVER WOUND. UNNA BOOTS APPLIED BILATERALLY.
[2020-07-30 15:35] VITALS: BP 145/60
== END | disposition home or self-care (01) ==
LOC: CHF HDHVI 14:46
PROVIDERS: ATTEND Internal Medicine Cardiovascular Disease
DX: R60.0 Localized edema (principal); I87.8 Other specified disorders of veins
CPT/HCPCS: G0463

== ENCOUNTER → 2020-08-03 | Outpatient (CLI) | payer OTHER, MEDICAID ==
[2020-08-03 15:00] VITALS: BP 151/61
--- NOTE | 2020-08-03 15:00 | NUR ---
CLINIC PT ARRIVED TO THE CLINIC FOR SCHEDULED WOUND CARE/UNNA BOOTS, A/O X4, ARRIVED BY WHEELCHAIR ASSISTED BY . PT ARRIVED ON HOME O2 2L N/C. PT HAS A 3.7LBS WT INCREASE SINCE LAST VISIT ON 07/30/20. SHE STATED THAT SHE FORGOT TO TAKE HER LASIX FOR THE LAST 3 DAYS. BILATERAL LEGS ARE 2+ PITTING EDEMA, UNNA BOOTS ON UPON ARRIVAL. WOUND IS COMPLETELY CLOSED.
--- NOTE | 2020-08-03 15:18 | NUR ---
WOUND CARE DONE BY SERVANDO TOMAS WOUND CLEANED WITH NS AND UNNA BOOTS APPLIED BILATERALLY. PT GIVEN INSTRUCTIONS TO REMOVE UNNA BOOT PRIOR TO VISIT WITH MD ON ANTONIO AND WASH HER LEGS SO MD CAN EXAMINE. PT VERBALIZED UNDERSTANDING.
[2020-08-03 15:38] VITALS: BP 146/51
--- NOTE | 2020-08-03 15:38 | NUR ---
Discharge Instructions See e-MAR for any mediations given with this visit. Patient education given on disease process. Patient verbalized understanding. Previous labs reviewed. Patient discharged in stable condition with after care instructions and follow up appointment ON WITH MD ROLLINS. NOTE WOUND ARE/UNNA BOOTS DONE BY SERVANDO TOMAS
== END | disposition home or self-care (01) ==
LOC: CHF HDHVI 15:04
PROVIDERS: ATTEND Internal Medicine Cardiovascular Disease
DX: I87.2 Venous insufficiency (chronic) (peripheral) (principal); R60.0 Localized edema
CPT/HCPCS: G0463

== ENCOUNTER → 2020-08-06 | Outpatient (CLI) | payer OTHER, MEDICAID ==
[2020-08-06 15:44] VITALS: BP 141/54
[2020-08-06 16:02] VITALS: BP 141/57
== END | disposition home or self-care (01) ==
LOC: CHF HDHVI 16:12
PROVIDERS: ATTEND Internal Medicine
DX: I87.2 Venous insufficiency (chronic) (peripheral) (principal); I50.9 Heart failure, unspecified; J45.909 Unspecified asthma, uncomplicated; R60.9 Edema, unspecified
CPT/HCPCS: G0463

== ENCOUNTER → 2020-08-10 | Outpatient (CLI) | payer OTHER, MEDICAID ==
[2020-08-10 15:04] VITALS: BP 132/60
--- NOTE | 2020-08-10 15:04 | NUR ---
CLINIC PT ARRIVED TO THE CLINIC FOR BILATERAL UNNA BOOTS PER MD ORDERS, A/OX4, BROUGHT IN ON WHEEL CHAIR, ASSISTED BY , PT ARRIVED ON HOME O2, 2L N/C, BREATHING IS EVEN AND UNLABORED.
--- NOTE | 2020-08-10 15:21 | NUR ---
VIVIAN MCGREGOR DONE BY SERVANDO TOMAS
[2020-08-10 15:32] VITALS: BP 145/56
== END | disposition home or self-care (01) ==
LOC: CHF HDHVI 15:02
PROVIDERS: ATTEND Internal Medicine
DX: R60.0 Localized edema (principal); I11.0 Hypertensive heart disease with heart failure; I50.9 Heart failure, unspecified
CPT/HCPCS: G0463

== ENCOUNTER → 2020-08-13 | Outpatient (CLI) | payer OTHER, MEDICAID ==
[2020-08-13 14:58] VITALS: BP 156/79
--- NOTE | 2020-08-13 14:58 | NUR ---
CLINIC PT ARRIVED TO THE CHF CLINIC FOR EVAL AND BILATERAL UNNA BOOTS, A/OX4, BROUGHT IN BY WHEELCHAIR, ASSISTED BY , PT IS ON HOME 02 2L N/C. BREATHING IS EVEN AND UNLABORED.
--- NOTE | 2020-08-13 15:05 | NUR ---
WOUND CARE/ UNNA BOOTS BILATERALLY DONE BY SERVANDO TOMAS
--- NOTE | 2020-08-13 15:14 | NUR ---
Discharge Instructions See e-MAR for any mediations given with this visit. Patient education given on disease process. Patient verbalized understanding. Previous labs reviewed. Patient discharged in stable condition with after care instructions and follow up appointment ON MONDAY. NOTE WOUND CARE/ UNNA BOOTS DONE BY SERVANDO TOMAS
[2020-08-13 15:15] VITALS: BP 153/59
== END | disposition home or self-care (01) ==
LOC: CHF HDHVI 14:59
PROVIDERS: ATTEND Internal Medicine Cardiovascular Disease
DX: R60.0 Localized edema (principal); I11.0 Hypertensive heart disease with heart failure; I50.9 Heart failure, unspecified
CPT/HCPCS: G0463

== ENCOUNTER → 2020-08-17 | Outpatient (CLI) | payer OTHER, MEDICAID ==
[2020-08-17 14:57] VITALS: BP 132/58
--- NOTE | 2020-08-17 14:57 | NUR ---
CLINIC PT ARRIVED TO THE CHF CLINIC FOR EVAL AND ORDERS FOR BILATERAL UNNA BOOTS, A/OX4, BROUGHT IN BY WHEELCHAIR, ASSISTED BY , BREATHING IS EVEN AND UNLABORED. PT IS UP 2LBS SINCE LAST VISIT ON 08/13/20
--- NOTE | 2020-08-17 15:06 | NUR ---
WOUND CARE BILATERAL UNNA BOOTS APPLIED BY VICENTA TOMAS
[2020-08-17 15:37] VITALS: BP 153/69
--- NOTE | 2020-08-17 15:37 | NUR ---
Discharge Instructions See e-MAR for any mediations given with this visit. Patient education given on disease process. Patient verbalized understanding. Previous labs reviewed. Patient discharged in stable condition with after care instructions and follow up appointment ON . NOTE WOUND CARE/UNNA BOOTS DONE BY VICENTA TOMAS
== END | disposition home or self-care (01) ==
LOC: CHF HDHVI 15:05
PROVIDERS: ATTEND Internal Medicine Cardiovascular Disease
DX: R60.0 Localized edema (principal); I11.0 Hypertensive heart disease with heart failure; I50.9 Heart failure, unspecified
CPT/HCPCS: G0463

== ENCOUNTER → 2020-08-20 | Outpatient (CLI) | payer OTHER, MEDICAID ==
[2020-08-20 15:01] VITALS: BP 142/58
[2020-08-20 15:18] VITALS: BP 144/59
== END | disposition home or self-care (01) ==
LOC: CHF HDHVI 14:57
PROVIDERS: ATTEND Internal Medicine Cardiovascular Disease
DX: R60.0 Localized edema (principal); I50.9 Heart failure, unspecified
CPT/HCPCS: G0463

== ENCOUNTER → 2020-08-24 | Outpatient (CLI) | payer OTHER, MEDICAID ==
[~2020-08-24] MED LIST changes: +FUROSEMIDE 20 MG/2 ML VIAL IV ONE; +FUROSEMIDE 20 MG/2 ML VIAL ONE; +FUROSEMIDE 40 MG/4 ML VIAL ONE; +POTASSIUM CHL 10 Meq TABLET PO ONE; +POTASSIUM CHL 20 Meq TABLET PO ONE
[2020-08-24 14:56] VITALS: BP 153/51
--- NOTE | 2020-08-24 14:56 | NUR ---
CLINIC PT ARRIVED TO THE CHF CLINIC FOR SCHEDULED CHF EVAL AND TX AND APPLICATION OF UNNA BOOTS, A/OX4, BROUGHT IN BY WHEELCHAIR ASSISTED BY , 2+ PITTING EDEMA, ON HOME O2 2L N/C. BREATHING IS EVEN AND UNLABORED. PT HAS A 3.8 WT INCREASE SINCE LAST VISIT ON 08/20/20.
--- NOTE | 2020-08-24 15:07 | NUR ---
WOUND CARE/UNNA BOOTS DONE BY SERVANDO TOMAS
[2020-08-24 15:35] VITALS: BP 143/62
--- NOTE | 2020-08-24 15:35 | NUR ---
Discharge Instructions See e-MAR for any mediations given with this visit. Patient education given on disease process. Patient verbalized understanding. Previous labs reviewed. Patient discharged in stable condition with after care instructions and follow up appointment ON . NOTE LASIX IVP ADMIN BY EMMY GARCIA PO ADMIN BY EMMY LOPEZAIRCRAFT FUELER/UNNA BOOTS DONE BY SERVANDO TOMAS
[2020-08-24 16:18] LABS: Basophils # (auto) 0.1 10 ^3/uL (0-0.2); Basophils % (auto) 0.6 % (0.0-2.0); Eosinophils # (auto) 0.5 10 ^3/uL (0-0.8); Eosinophils % (auto) 3.9 % (0.0-7.0); Hematocrit 34.6 % (36.0-46.0); Hemoglobin 11.2 g/dL (12.2-16.2); Lymphocytes # (auto) 2.5 10 ^3/uL (0.4-5.4); Lymphocytes % (auto) 20.1 % (10.0-50.0); Mean Corpuscular Hemoglobin 30.1 pg (28.0-32.0); Mean Corpuscular Hgb Conc. 32.4 g/dL (32.0-36.0); Mean Corpuscular Volume 92.9 fL (80.0-100.0); Monocytes # (auto) 0.8 10 ^3/uL (0-1.3); Monocytes % (auto) 6.5 % (0.0-12.0); Neutrophils # (auto) 8.5 10 ^3/uL (1.6-8.6); Neutrophils % (auto) 68.9 % (37.0-80.0); Platelet Count (auto) 259 10^3/uL (140-450); Red Blood Cells 3.72 10^6/uL (4.0-5.20); White Blood Cell 12.4 10^3/uL (4.4-10.8)
[2020-08-24 16:37] LABS: Urine Blood Negative /uL (Negative); Urine Specific Gravity 1.006 (1.001-1.035)
[2020-08-24 17:19] LABS: Potassium 3.8 mmol/L (3.5-5.1)
== END | disposition home or self-care (01) ==
LOC: CHF HDHVI 14:54
PROVIDERS: ATTEND Internal Medicine Cardiovascular Disease
DX: I11.0 Hypertensive heart disease with heart failure (principal); I50.9 Heart failure, unspecified; J45.909 Unspecified asthma, uncomplicated
CPT/HCPCS: 36415; 81003; 82565; 84132; 84520; 85025; 96374; G0463; J1940

== ENCOUNTER → 2020-08-26 | Outpatient (CLI) | payer OTHER, MEDICAID ==
[~2020-08-26] MED LIST changes: -FUROSEMIDE 20 MG/2 ML VIAL IV ONE; -FUROSEMIDE 20 MG/2 ML VIAL ONE; -FUROSEMIDE 40 MG/4 ML VIAL ONE; -POTASSIUM CHL 10 Meq TABLET PO ONE; -POTASSIUM CHL 20 Meq TABLET PO ONE
== END | disposition home or self-care (01) ==
LOC: CANPRECLI → CATH 09:40 → EDSTATUS 09-09 08:47
PROVIDERS: ATTEND Internal Medicine
DX: R07.9 Chest pain, unspecified (principal)

== ENCOUNTER → 2020-08-27 | Outpatient (CLI) | payer OTHER, MEDICAID ==
[~2020-08-27] MED LIST changes: +POTASSIUM CHL 20 Meq TABLET PO ONE
[2020-08-27 14:53] VITALS: BP 136/53
--- NOTE | 2020-08-27 14:53 | NUR ---
CLINIC PT ARRIVED TO THE CLINIC FOR SCHEDULED BILATERAL UNNA BOOTS AND EVAL. A/OX4, BROUGHT IN BY WHEEL CHAIR ASSISTED BY . PT ARRIVED ON HOME O2 2L N/C. PT INCREASED IN WT 1.2LBS SINCE LAST VISIT ON 08/24/20. PT C/O INABILITY TO URINATE COMPLETELY.
--- NOTE | 2020-08-27 15:11 | NUR ---
WOUND CARE/UNNA BOOTS APPLIED BY SERVANDO TOMAS
--- NOTE | 2020-08-27 15:28 | NUR ---
MAGALI TOMAS BROUGHT TO BACK OFFICE TO TRANSLATE FOR PT. DISCUSSED THE DIFFERENT POSSIBILITIES OF WT STEADY INCREASING, PT DENIES DRINKING TOO MUCH WATER, DENIES EATING HIGH SALT DIET, DENIES OVER EATING. PT STATES SHE HAS BEEN FOLLOWING HER MEDICATION AND DIET REGIMEN
[2020-08-27 15:32] VITALS: BP 135/60
--- NOTE | 2020-08-27 15:32 | NUR ---
Discharge Instructions See e-MAR for any mediations given with this visit. Patient education given on disease process. Patient verbalized understanding. Previous labs reviewed. Patient discharged in stable condition with after care instructions and follow up appointment ON MON. PT DISCHARGED TO BACK OFFICE TO HAVE BLADDER SCAN FOR POSSIBLE URINARY RETENTION. NOTE WOUND CARE/UNNA BOOTS APPLIED BY SERVANDO MUHAMMAD ADMIN BY YANN MORGAN
== END | disposition home or self-care (01) ==
LOC: CHF HDHVI 15:16
PROVIDERS: ATTEND Internal Medicine Cardiovascular Disease
DX: R60.0 Localized edema (principal); I50.9 Heart failure, unspecified
CPT/HCPCS: G0463

== ENCOUNTER → 2020-08-31 | Outpatient (CLI) | payer OTHER, MEDICAID ==
[~2020-08-31] MED LIST changes: -POTASSIUM CHL 20 Meq TABLET PO ONE
[2020-08-31 14:57] VITALS: BP 128/58
--- NOTE | 2020-08-31 14:57 | NUR ---
CLINIC PT ARRIVED TO THE CHF CLINIC FOR SCHEDULED APPLICATION OF BILATERAL UNNA BOOTS, A/OX4, BROUGHT IN BY WHEEL CHAIR, ASSISTED BY , PT HAS A 1.5LB WT INCREASE SINCE LAST VISIT ON 08/28/20.
--- NOTE | 2020-08-31 15:10 | NUR ---
KIRANA BOOTS BILATERAL UNNA BOOTS DONE BY SERVANDO TOMAS
[2020-08-31 15:18] VITALS: BP 128/54
== END | disposition home or self-care (01) ==
LOC: CHF HDHVI 14:54
PROVIDERS: ATTEND Internal Medicine
DX: R60.0 Localized edema (principal); I50.9 Heart failure, unspecified
CPT/HCPCS: G0463

== ENCOUNTER → 2020-09-02 | Outpatient (CLI) | payer OTHER, MEDICAID ==
[2020-09-02 14:32] VITALS: BP 147/70
--- NOTE | 2020-09-02 14:32 | NUR ---
CLINIC PT ARRIVED TO CHF CLINIC FOR SCHEDULED BILATERAL UNNA BOOT APPLICATION FOR LOWER EXTREMITY EDEMA PER , Julia/OX4, BROUGHT IN BY WHEEL CHAIR AND ASSISTED BY , PT IS ON HOME O2 3L N/C, BREATHING IS EVEN AND UNLABORED.
--- NOTE | 2020-09-02 14:42 | NUR ---
WOUND CARE BILATERAL UNNA BOOTS APPLIED BY SERVANDO TOMAS
[2020-09-02 14:49] VITALS: BP 138/56
--- NOTE | 2020-09-02 14:49 | NUR ---
Discharge Instructions See e-MAR for any mediations given with this visit. Patient education given on disease process. Patient verbalized understanding. Previous labs reviewed. Patient discharged in stable condition with after care instructions and follow up appointment ON MON. NOTE WOUND CARE/UNNA BOOTS APPLIED BY SERVANDO TOMAS
== END | disposition home or self-care (01) ==
LOC: CHF HDHVI 14:26
PROVIDERS: ATTEND Internal Medicine Cardiovascular Disease
DX: R60.0 Localized edema (principal); I50.9 Heart failure, unspecified
CPT/HCPCS: G0463

== ENCOUNTER → 2020-09-07 | Outpatient (CLI) | payer OTHER, MEDICAID ==
[2020-09-07 15:00] VITALS: BP 126/52
--- NOTE | 2020-09-07 15:00 | NUR ---
CLINIC PT ARRIVED TO THE CHF CLINIC FOR SCHEDULED EVAL AND BILATERAL UNNA BOOTS. A/OX4, BROUGHT IN BY WHEEL CHAIR, ASSISTED BY . PT ARRIVED ON HOME O2 2L NC, BREATHING IS EVEN AND UNLABORED. WT INCREASE 1.8 LBS SINCE LAST VISIT ON 09/02/20. PT REMOVEED UNNA BOOTS LAST NIGHT TO SHOWER AND HAS 3+ PITTING EDEMA BILATERALLY.
--- NOTE | 2020-09-07 15:05 | NUR ---
WOUND CARE/UNNA BOOTS APPLIED BY SERVANDO TOMAS
[2020-09-07 15:24] VITALS: BP 124/49
--- NOTE | 2020-09-07 15:24 | NUR ---
Discharge Instructions See e-MAR for any mediations given with this visit. Patient education given on disease process. Patient verbalized understanding. Previous labs reviewed. Patient discharged in stable condition with after care instructions and follow up appointment ON 09/08/20 @[id number] WITH MD ROLLINS. NOTE WOUND CARE/UNNA BOOTS DONE BY SERVANDO TOMAS
== END | disposition home or self-care (01) ==
LOC: CHF HDHVI 15:47
PROVIDERS: ATTEND Internal Medicine Cardiovascular Disease
DX: R60.0 Localized edema (principal)
CPT/HCPCS: G0463

== ENCOUNTER → 2020-09-14 | Outpatient (CLI) | payer OTHER, MEDICAID ==
[2020-09-14 14:55] VITALS: BP 133/48
--- NOTE | 2020-09-14 14:55 | NUR ---
CLINIC PT ARRIVED TO THE CHF CLINIC FOR SCHEDULED CHF EVAL AND UNNA BOOTS APPLICATION, A/OX4, PT ARRIVED IN HOME WHEELCHAIR ON HOME O2 2L N/C, BREATHING IS EVEN AND UNLABORED
--- NOTE | 2020-09-14 15:15 | NUR ---
VIVIAN BOOTS BILATERALLY APPLIED BY VICENTA TOMAS
[2020-09-14 15:38] VITALS: BP 117/47
--- NOTE | 2020-09-14 15:38 | NUR ---
Discharge Instructions See e-MAR for any mediations given with this visit. Patient education given on disease process. Patient verbalized understanding. Previous labs reviewed. Patient discharged in stable condition with after care instructions and follow up appointment ON . NOTE WOUND CARE/UNNA BOOTS APPLIED BY VICENTA TOMAS
== END | disposition home or self-care (01) ==
LOC: CHF HDHVI 15:09
PROVIDERS: ATTEND Internal Medicine Cardiovascular Disease
DX: R60.0 Localized edema (principal); I50.9 Heart failure, unspecified
CPT/HCPCS: G0463

== ENCOUNTER → 2020-09-17 | Outpatient (CLI) | payer OTHER, MEDICAID ==
[2020-09-17 13:13] VITALS: BP 127/51
--- NOTE | 2020-09-17 15:13 | NUR ---
CLINIC PT ARRIVED TO CHF CLINIC FOR SCHEDULED EVAL AND UNNA BOOTS APPLICATION, A/OX4, BROUGHT IN BY WHEELCHAIR, ASSISTED BY . 2+ EDEMA BILATERAL TO THE LOWER EXTREMITIES.
--- NOTE | 2020-09-17 15:20 | NUR ---
VIVIAN MCGREGOR APPLIED BY VICENTA TOMAS
--- NOTE | 2020-09-17 15:40 | NUR ---
LABS DRAWN AND SENT
[2020-09-17 15:50] VITALS: BP 126/56
--- NOTE | 2020-09-17 15:50 | NUR ---
Discharge Instructions See e-MAR for any mediations given with this visit. Patient education given on disease process. Patient verbalized understanding. Previous labs reviewed. Patient discharged in stable condition with after care instructions and follow up appointment ON MONDAY. NOTE WOUND CARE/UNNA BOOTS APPLIED BY VICENTA TOMAS
[2020-09-17 16:41] LABS: Basophils # (auto) 0.1 10 ^3/uL (0-0.2); Basophils % (auto) 0.6 % (0.0-2.0); Eosinophils # (auto) 0.6 10 ^3/uL (0-0.8); Eosinophils % (auto) 5.4 % (0.0-7.0); Hematocrit 34.9 % (36.0-46.0); Hemoglobin 11.5 g/dL (12.2-16.2); Lymphocytes # (auto) 2.4 10 ^3/uL (0.4-5.4); Lymphocytes % (auto) 22.6 % (10.0-50.0); Mean Corpuscular Hemoglobin 29.8 pg (28.0-32.0); Mean Corpuscular Volume 90.5 fL (80.0-100.0); Monocytes # (auto) 0.9 10 ^3/uL (0-1.3); Neutrophils # (auto) 6.6 10 ^3/uL (1.6-8.6); Neutrophils % (auto) 62.4 % (37.0-80.0); Nucleated Red Blood Cells % 0.1 %; Platelet Count (auto) 330 10^3/uL (140-450); Red Blood Cells 3.85 10^6/uL (4.0-5.20); Red Cell Distribution Width 17.5 % (11.8-14.3); White Blood Cell 10.5 10^3/uL (4.4-10.8)
[2020-09-17 16:57] LABS: Albumin 3.4 g/dL (3.4-5.0); BUN/Creatinine Ratio 20.9; Calcium 8.8 mg/dL (8.5-10.1); Magnesium 1.8 mg/dL (1.6-2.6)
[2020-09-17 17:00] LABS: Bilirubin, Total 0.5 mg/dL (0.2-1.0); Total Protein 6.8 g/dL (6.4-8.2)
== END | disposition home or self-care (01) ==
LOC: CHF HDHVI 15:01
PROVIDERS: ATTEND Internal Medicine Cardiovascular Disease
DX: I50.23 Acute on chronic systolic (congestive) heart failure (principal)
CPT/HCPCS: 36415; 80053; 83735; 83880; 85025; G0463

== ENCOUNTER → 2020-09-21 | Outpatient (CLI) | payer OTHER, MEDICAID ==
[2020-09-21 14:50] VITALS: BP 117/44
[2020-09-21 15:15] VITALS: BP 120/51
== END | disposition home or self-care (01) ==
LOC: CHF HDHVI 14:43
PROVIDERS: ATTEND Internal Medicine Cardiovascular Disease
DX: R60.0 Localized edema (principal)
CPT/HCPCS: G0463

== ENCOUNTER → 2020-09-29 | Outpatient (CLI) | payer OTHER, MEDICAID ==
[2020-09-29 10:50] VITALS: BP 129/60
[2020-09-29 11:39] VITALS: BP 129/60
== END | disposition home or self-care (01) ==
LOC: CHF HDHVI 11:18
PROVIDERS: ATTEND Internal Medicine
DX: E11.9 Type 2 diabetes mellitus without complications (principal); E66.01 Morbid (severe) obesity due to excess calories; I73.9 Peripheral vascular disease, unspecified
CPT/HCPCS: G0463

== ENCOUNTER → 2020-10-05 | Outpatient (CLI) | payer OTHER, MEDICAID ==
[~2020-10-05] MED LIST changes: +CYANOCOBALAMIN (B-12) 1000 MCG/1 ML VIAL IM ONE; +CYANOCOBALAMIN (B-12) 1000 MCG/1 ML VIAL ONE
[2020-10-05 14:55] VITALS: BP 113/39
--- NOTE | 2020-10-05 14:55 | NUR ---
PT ARRIVED TO CHF CLINIC VIA WHEELCHAIR WITH FOR SCHEDULED CHF EVAL & TX.
--- NOTE | 2020-10-05 15:33 | NUR ---
ORDERED LABS DRAWN AND SENT TO LAB PER MD ORDERS BY CPT SHERIDAN. BLE WITH COMPRESSION STOCKINGS. BLE ASSESSED BY JESSICA MAYS. RLE PITTING EDEMA +1 REDDENED AND WARM TO TOUCH. LLE NON PITTING EDEMA REDDENED AND WARM TO TOUCH, NO NO S/S. PT WITH A AN 11 LBS WT LOSS.
[2020-10-05 15:50] VITALS: BP 136/59
--- NOTE | 2020-10-05 15:50 | NUR ---
Discharge Instructions See e-MAR for any mediations given with this visit. VERBAL education given TO PT AND on DIABETES disease process, S/S OF DIABETES, RISKS, LIFE STYLE CHANGES AND NUTRITIONAL MANAGEMENT. PT STATED SHE DOES NOT EAT RICE, PASTAS, OCCASIONAL BREAD AND ONLY EATS 1-2 TORTILLAS A DAY. Patient AND verbalized understanding OF INFORMATION GIVEN AND HAD NO FURTHER QUESTIONS AT THIS TIME. Previous labs reviewed. Patient discharged in stable condition with after care instructions WITH VIA W/C and follow up appointment NEXT MONDAY. RN ENCOURAGE PT TO CONTINUE TO WEAR BLE COMPRESSION STOCKINGS DIRECTED AND ELEVATE BOTH LEGS ABOVE HEART LEVEL TOLERATED. NOTE: VIT B12 IM GIVEN R DELTOID LOT# [id number] EXP 02/27
[2020-10-05 16:23] LABS: Magnesium 2.1 mg/dL (1.6-2.6); Potassium 3.5 mmol/L (3.5-5.1)
== END | disposition home or self-care (01) ==
LOC: CHF HDHVI 15:10
PROVIDERS: ATTEND Internal Medicine Cardiovascular Disease
DX: I11.0 Hypertensive heart disease with heart failure (principal); I50.22 Chronic systolic (congestive) heart failure; I73.9 Peripheral vascular disease, unspecified; E11.9 Type 2 diabetes mellitus without complications; R60.9 Edema, unspecified; E55.9 Vitamin D deficiency, unspecified; J45.909 Unspecified asthma, uncomplicated; E66.01 Morbid (severe) obesity due to excess calories
CPT/HCPCS: 36415; 82306; 82565; 83036; 83735; 84132; 84520; 96372; G0463; J3420

== ENCOUNTER → 2020-12-07 | Outpatient (CLI) | payer OTHER, MEDICAID ==
[~2020-12-07] MED LIST changes: -CYANOCOBALAMIN (B-12) 1000 MCG/1 ML VIAL IM ONE; -CYANOCOBALAMIN (B-12) 1000 MCG/1 ML VIAL ONE
== END | disposition home or self-care (01) ==
LOC: Rad HDHVI 15:54
PROVIDERS: ATTEND Internal Medicine
DX: I25.10 Atherosclerotic heart disease of native coronary artery without angina pectoris (principal); E03.9 Hypothyroidism, unspecified
CPT/HCPCS: 93880

== ENCOUNTER 2024-09-18 06:36 | Day surgery (SDC) | payer OTHER, MEDICAID ==
[~2024-09-18] VITALS: Ht 152.4 cm; Wt 76.7 kg
[~2024-09-18 06:36] MED LIST changes: +ALBU0.08 HHN; -ALBU2TAB4 PO; +ALEN35TA18 PO; +CHOL20007 PO; -FAMO-12 PO; -FURO40TA4 PO; +HYDR25TA4 PO; +LEFL20TA PO; -LEVO50TA7 PO; +LOSA-534 PO; -METO-169 PO; +MONT-8 PO; -MONT10TA34 PO; -MONT4CHW9 PO; +POM; +POM PO; +POTA8TAB38 PO; +UPAD15TA PO
[2024-09-18] MEDS: LIDOCAINE VISCOUS 2% 15ML UD MT ONE (07:30)
[2024-09-18] MEDS: fentaNYL CITRATE 100 MCG/2 ML VL IV ONE (07:30)
[2024-09-18] MEDS: MIDAZOLAM HCL 5 MG/ML-1ML VIAL IV ONE (07:30)
[2024-09-18] MEDS: MIDAZOLAM HCL 2MG/2ML 2ml VIAL (1mg/ml) ONE (08:37)
[2024-09-18 09:03] VITALS: BP 139/58; PULSE 53; RESP 12; O2SAT 97
--- NOTE | 2024-09-18 09:13 | DVHOP2 ---
Operative Report Trans-Esophageal Echocardiogram PROCEDURE REPORT Date of Service: 09/18/2024 Mechanical Technician: Ryan Deleon MD PROCEDURE PERFORMED: Transesophageal echocardiogram, conscious sedation administration and supervision, more than 15 minutes. Intra cardiac bubble study. PREOPERATIVE DIAGNOSES: r/o Valvular heart disease/MS. DESCRIPTION OF PROCEDURE: The patient signed informed consent understanding risks, benefits and alternatives of the procedure, she wished to proceed. The p atient was given 15 mL of oral viscous lidocaine. She was placed in a left lateral decubitus position and conscious sedation was administered per labor arbitrator protocol (1 mg of Versed and 25 mcg of Fentanyl). I administered a bite block into her mouth and a SUSY probe into the mid esophagus without any difficulties or complications. Multiple planar images were obtained. Bubble study was also performed. At the completion of procedure, SUSY probe was removed and there were no immediate complications. Vitals signs were stable throughout the procedure. FINDINGS: 1. Left ventricle: Mild concentrated Left ventricular hypertrophy was seen. LVEF was 60%. There was no gross wall motion abnormality seen. 2. Right ventricle: Normal RV size with normal systolic function. 3. Left atrium: LA was markedly enlarged 4. Right atrium: RA was enlarged 5. 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 Mild Mitral regurgitation, Mild Mitral stenosis (mean pressure was 4 mmHg, Calculated MVA was around 3 cm.) Mitral leaflets were opening good. 6. Left atrial appendage: No evidence of thrombus. 7. 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 It worked properly. There was no Insufficiency. There was no stenosis/mismatch. Mean pressure across the valve (calculated when performing limited TTE images) was 20 mmHg. 8. Pulmonic valve: Trivial pulmonic insufficiency. No significant stenosis. 9. Tricuspid valve: Mild tricuspid regurgitation. 10. Interatrial septum: Negative color flow for right to left shunt was observed. Bubble study was negative and normal. 11. Pericardium: No significant effusion. 12. Thoracic aorta: No significant plaquing. RYAN DELEON MD Sep 18, 2024 09:13
[2024-09-18 09:19] VITALS: BP 120/43; PULSE 51; RESP 15; O2SAT 99
[2024-09-18 09:33] VITALS: PULSE 67; RESP 12; O2SAT 98
[2024-09-18 09:48] VITALS: BP 114/39; PULSE 52; RESP 12; O2SAT 94
== END 2024-09-18 10:01 | disposition home or self-care (01) ==
LOC: CATH 06:36
PROVIDERS: ATTEND Internal Medicine Cardiovascular Disease
DX: I08.1 Rheumatic disorders of both mitral and tricuspid valves (principal); I11.0 Hypertensive heart disease with heart failure; I50.9 Heart failure, unspecified; E78.5 Hyperlipidemia, unspecified; M06.9 Rheumatoid arthritis, unspecified; J44.9 Chronic obstructive pulmonary disease, unspecified; Z88.0 Allergy status to penicillin; Z79.82 Long term (current) use of aspirin; Z79.899 Other long term (current) drug therapy; Z87.891 Personal history of nicotine dependence; Z95.1 Presence of aortocoronary bypass graft; Z90.710 Acquired absence of both cervix and uterus; Z82.49 Family history of ischemic heart disease and other diseases of the circulatory system
CPT/HCPCS: 93312; 93325; J2250; J3010; J7030; 99152